=== PATIENT | male | born 1930 | race Caucasian/White ===

== ENCOUNTER 2016-11-09 16:20 | Emergency (ER) | payer MEDICARE, BC ==
[~2016-11-09] VITALS: Ht 175.3 cm; Wt 77.1 kg
[~2016-11-09 16:20] MED LIST: ACET-2151 PO; AML5T; AMLO10TA82 PO; ASP325T PO; ATOR40TA PO; CEFU500T5 PO; CHOL2000 PO; CLPD75T PO; DNPZ10T PO; FAMO20TA13 PO; METO50TA7; MTP100TCR PO; MULT1CAP27 PO; NTR.4SL PO; OMG1KC PO; PROP1TAB77; VITA1CAP59 PO; [UNRECOGNIZED DRUG - CODE] PO
--- OUTSIDE RECORDS SUMMARY | 2016-11-09 16:26 | XMS REPORT | Continuity of Care Document ---
Author Author [facility] Organization [facility] Address Unknown Phone Unavailable Care Team Providers Care Heat Treat Inspector Name Role Phone Bhardwaj, Lalita PCP [phone] Source Comments Some departments are not documenting in the electronic medical record. If you do not see the information that you expected, contact Release of Information in the Health Information Management department at [phone] for further assistance in locating additional records.[facility] Active Allergies and Adverse Reactions Allergen Noted Date Severity Reactions Comments Tetracycline 08/22/2011 HIVES Current Medications Prescription Sig. Disp. Refills Start End Date Status Date clopidogrel (PLAVIX) 75 Take 75 mg by mouth Active mg daily. aspirin 325 mg tablet Take 325 mg by mouth Active daily. ATORVASTATIN CALCIUM Take 40 mg by mouth Active (LIPITOR PO) daily. donepezil (ARICEPT) 5 mg Take 10 mg by mouth at Active tablet bedtime daily. vitamins, B complex Tab Take 1 Tab by mouth Active daily. DOCOSAHEXANOIC ACID/EPA Take 1,000 mg by mouth Active (FISH OIL PO) twice daily. metoprolol XL (TOPROL XL) Take 100 mg by mouth Active 100 mg tablet daily. famotidine (PEPCID) 20 mg Take 20 mg by mouth Active tablet daily. vitamins, multiple Cap Take 1 Cap by mouth Active daily. Cholecalciferol (Vitamin Take 2,000 Units by mouth Active D3) 2,000 unit Cap daily. acetaminophen 650 mg Tab Take 1 Tab by mouth every 30 Tab 08/30/20 Active 6 hours as needed for 11 Pain. hydrocodone-acetaminophen Take 1 Tab by mouth every 15 Tab 0 08/30/20 Active (NORCO) 5-325 mg per 12 hours. 11 tablet amLODIPine (NORVASC) 5 mg Take 1 Tab by mouth 90 Tab 1 08/30/20 Active tablet daily. 11 nitroglycerin (NITROSTAT) Place 1 Tab under tongue 30 Tab 0 08/30/20 Active 0.3 mg tablet every 5 minutes as 11 needed. 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 Bradycardia 09/01/2000 Overview: Had PPM placed in 2000. Social History Tobacco Use Types Packs/Day Years Used Date Never Assessed Last Filed Vital Signs Vital Sign Reading Time Taken Blood Pressure 136/80 08/30/2011 11:47 AM ACCESS CONTROL OFFICER Pulse 60 08/30/2011 11:47 AM ACCESS CONTROL OFFICER Temperature 37.1 C (98.8 F) 08/30/2011 11:47 AM ACCESS CONTROL OFFICER Respiratory Rate - - Height 1.753 m (5' 9") 08/22/2011 5:13 PM ACCESS CONTROL OFFICER Weight 75.3 kg (166 lb 0.1 oz) 08/30/2011 4:00 AM ACCESS CONTROL OFFICER Body Mass Index 24.5 08/30/2011 4:00 AM ACCESS CONTROL OFFICER Oxygen Saturation 94% 08/30/2011 11:47 AM ACCESS CONTROL OFFICER Plan of Care Health Maintenance Due Date Last Done Comments Physical (Comprehensive) 1937 Exam Pertussis Vaccine 1942 Tetanus Vaccine 1948 Shingles Vaccine 1991 Prevnar/Pneumovax (#1) 1996 Influenza Vaccine 05/02/2015 Results from Last 3 Months Not on file
--- NOTE | 2016-11-09 17:28 | ED Lower Extremity ---
General Stated Complaint: R THIGH SWELLING/POSS BLOOD CLOT Source: patient, family Exam Limitations: no limitations History of Present Illness Time seen by provider: 17:04 Initial Comments Here with report of right thigh swelling and bruising. Onset evening. He and his were moving some 2 x 4 wood on that day and they noticed the bruising and pain that night. He is on Plavix and aspirin. Has not missed any doses. Doesn't remember any specific injury although he does have mild to moderate dementia. His is very caring and manages his medicines. She does not remember any specific injury with him either. No reported or noted falls. He is able to walk but does have some pain in the right upper thigh along the hamstring. There is bruising checked and her thigh to the area behind the knee and outer aspect of the thigh to a lesser extent as well. Onset: other (2-3 days) Severity: mild, moderate Pain/Injury Location: right thigh Method of Injury: unknown Modifying Factors: Worse With Movement, Improves With Rest Allergies and Home Medications Allergies Coded Allergies: IV Dye, Iodine Containing (Unverified Allergy, Unknown, 02/16/07) Tetracycline (Unverified Allergy, Unknown, 02/16/07) Home Medications Amlodipine Besylate 10 Mg Tablet 5 MG PO DAILY (Reported) Aspirin 325 Mg Tablet 325 MG PO DAILY (Reported) Atorvastatin Calcium 40 Mg Tablet 40 MG PO DAILY (Reported) Cholecalciferol 2,000 Unit Capsule 2,000 UNIT PO DAILY (Reported) Clopidogrel 75 Mg Tablet 75 MG PO DAILY (Reported) Donepezil Hcl 10 Mg Tablet 10 MG PO DAILY (Reported) Famotidine 20 Mg Tablet 20 MG PO DAILY PRN PRN (Reported) Metoprolol Succinate 100 Mg Tab.sr.24h 100 MG PO DAILY (Reported) Multivitamins 1 Each Capsule 1 EACH PO DAILY (Reported) Nitroglycerin 0.4 Mg Tab 0.4 MG PO PRN (Reported) [place] 3 Polyunsat Fatty Acids 1,000 Mg Cap 1,000 MG PO BID (Reported) Vitamin B Complex 1 Cap Capsule 1 CAP PO DAILY (Reported) Constitutional: see HPINo chills, No fever Respiratory: no symptoms reported Cardiovascular: no symptoms reported Gastrointestinal: no symptoms reported Musculoskeletal: see HPI muscle pain muscle stiffness Skin: see HPI change in colorNo lesions Past Fsjdqbz-Zyhyhg-Ofklur Hx Patient Social History Alcohol Use: Denies Use Recreational Drug Use: No Smoking Status: Unknown if Ever Smoked Recent Foreign Travel: No Contact w/Someone Who Travel: No Surgeries HX Surgeries: Yes (194 APPY) Respiratory Hx Respiratory Disorders: No Cardiovascular Hx Cardiac Disorders: Yes Neurological Hx Neurological Disorders: No Reproductive System Hx Reproductive Disorders: Yes Genitourinary Hx 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) Gastrointestinal Hx Gastrointestinal Disorders: Yes Musculoskeletal Hx Musculoskeletal Disorders: Yes Endocrine Hx Endocrine Disorders: No HEENT HX ENT Disorders: No Psychosocial Hx Psychiatric Problems: No Blood Transfusions Hx Blood Disorders: Yes Reviewed Nursing Assessment Reviewed/Agree w Nursing PMH: Yes Family Medical History Significant Family History: No Pertinent Family Hx Physical Exam Vital Signs Vital Sign - Last 12Hours 11/09/16 17:22 Temp 97.2 Pulse 59 Resp 16 B/P 156/85 Pulse Ox 97 O2 Delivery Room Air Capillary Refill : General Appearance: WD/WN no apparent distress HEENT: PERRL/EOMI pharynx normal Neck: full range of motion supple Cardiovascular: regular rate, rhythm no murmur Respiratory: lungs clear normal breath sounds Gastrointestinal: non tender soft Back: normal inspection no CVA tenderness no vertebral tenderness Hips: bilateral hip non-tender, bilateral hip normal inspection, bilateral hip normal range of motion Legs: right leg soft tissue tenderness (medial thigh and to a lesser extent area behind the right knee.), right leg swelling (mild swelling of the thigh) Knees: left knee non-tender, right knee soft tissue tenderness (posterior knee) Ankles: bilateral ankle non-tender, bilateral ankle normal inspection Feet: right foot non-tender, right foot normal inspection Neurologic/Psychiatric: alert oriented x 3 Skin: warm/dry ecchymosis (right medial thigh upper portion and posterior distal thigh. Small amount on lateral aspect of the thigh on right as well.) Progress/Results/Core Measures Results/Orders Lab Results Laboratory Tests Test 11/09/16 17:25 Range/Units Activated Partial Thromboplast Time 29 24-35 SEC Alanine Aminotransferase (ALT/SGPT) 22 0-55 U/L Albumin 4.2 3.2-4.5 G/DL Alkaline Phosphatase 72 40-136 U/L Anion Gap 14 5-14 MMOL/L Aspartate Amino Transf (AST/SGOT) 40 H 5-34 U/L BUN/Creatinine Ratio 16 Basophils # (Auto) 0.0 0.0-0.1 10^3/uL Basophils (%) (Auto) 0 0-10 % Blood Urea Nitrogen 24 H 7-18 MG/DL Calcium Level 9.7 8.5-10.1 MG/DL Carbon Dioxide Level 21 21-32 MMOL/L Chloride Level 105 98-107 MMOL/L Creatinine 1.52 H 0.60-1.30 MG/DL Eosinophils # (Auto) 0.1 0.0-0.3 10^3/uL Eosinophils (%) (Auto) 1 0-10 % Estimat Glomerular Filtration Rate 44 Glucose Level 131 H 70-105 MG/DL Hematocrit 40 40-54 % Hemoglobin 13.6 13.3-17.7 G/DL INR Comment 1.0 0.8-1.4 Lymphocytes # (Auto) 2.1 1.0-4.0 X 10^3 Lymphocytes (%) (Auto) 20 12-44 % Mean Corpuscular Hemoglobin 32 25-34 PG Mean Corpuscular Hemoglobin Concent 34 32-36 G/DL Mean Corpuscular Volume 93 80-99 FL Mean Platelet Volume 10.9 H 7.4-10.4 FL Monocytes # (Auto) 1.2 H 0.0-1.0 X 10^3 Monocytes (%) (Auto) 11 0-12 % Neutrophils # (Auto) 7.4 1.8-7.8 X 10^3 Neutrophils (%) (Auto) 69 42-75 % Platelet Count 166 130-400 10^3/uL Potassium Level 4.4 3.6-5.0 MMOL/L Prothrombin Time 12.8 12.2-14.7 SEC Red Blood Count 4.30 L 4.35-5.85 10^6/uL Red Cell Distribution Width 13.1 10.0-14.5 % Sodium Level 140 135-145 MMOL/L Total Bilirubin 1.0 0.1-1.0 MG/DL Total Protein 7.5 6.4-8.2 G/DL White Blood Count 10.7 4.3-11.0 10^3/uL My Orders Orders-VALENTIN BRASWELL MD Cbc With Automated Diff (11/09/16 17:19) Comprehensive Metabolic Panel (11/09/16 17:19) Protime With Inr (11/09/16 17:19) Partial Thromboplastin Time (11/09/16 17:19) Us Venous Lower Ext Rt (11/09/16 17:19) Vital Signs/I&O Vital Sign - Last 12Hours 11/09/16 11/09/16 17:22 18:53 Temp 97.2 Pulse 59 71 Resp 16 18 B/P 156/85 Pulse Ox 97 96 O2 Delivery Room Air Progress Note : Progress Note Seen and evaluated. Labs ordered. Ultrasound right leg. Monitor patient. 1840: Ultrasound negative. Discharged home with return precautions. Patient and family verbalize understanding instructions and agreement with plan. Diagnostic Imaging Diagonstic Imaging: Ultrasound Plain Films/CT/US/NM/MRI: leg Comments VIA [facility]. [place], [place] NAME: GREG SESAY [facility] REC#: [id number] PT STATUS: REG ER : 1930 PHYSICIAN: VALENTIN BRASWELL MD ADMIT DATE: 11/09/16/ER Draft Date of Exam:11/09/16 US VENOUS LOWER EXT RT PROCEDURE: US right lower extremity venous. TECHNIQUE: Multiple real-time grayscale images were obtained over the right lower extremity in various projections. Additional duplex Doppler and color Doppler images were also obtained. Indication: Right thigh pain and swelling. Comparison: None. Technique: The right lower extremity deep venous system was interrogated from the common femoral vein through the popliteal vein. These images were assessed for grayscale appearance, color and spectral Doppler blood flow, compression, and augmentation. Findings: There is no evidence of intraluminal filling defect. Normal compression and augmentation is noted throughout. Soft tissues are unremarkable. Impression: 1. No sonographic evidence of deep venous thrombosis in the right lower extremity. Dictated on workstation # [id number] Dict: 11/09/161818 Trans: 11/09/16 1823 [facility] [id number] Interpreted by: EMILI HASSAN MD Electronically signed by: Departure Impression Impression: Primary Impression: Right hamstring muscle strain Qualified Code: S76.311A - Strain of muscle, fascia and tendon of the posterior muscle group at thigh level, right thigh, initial encounter Additional Impression: Hematoma of right thigh Qualified Code: S70.11XA - Contusion of right thigh, initial encounter Disposition: 01 HOME, SELF-CARE Condition: Improved Departure-Patient Inst. Decision time for Depature: 18:40 Referrals: HOWIE MOORE MD (PCP/Family) Primary Care Physician Patient Instructions: Contusion (DC), Lower Extremity Muscle Strain Add. Discharge Instructions: You may use ice packs to the affected area as needed. Follow-up with your DrMendoza in a few days for recheck. Continue home medications as directed. Return for worse pain, swelling, weakness, fever, breathing problems or other concerns as needed. VALENTIN BRASWELL MD Nov 09, 2016 17:28 VALENTIN BRASWELL MD Nov 09, 2016 17:28
[2016-11-09 17:39] LABS: BASOPHILS % (AUTO) 0 % (0-10); EOSINOPHILS # (AUTO) 0.1 10^3/uL (0.0-0.3); EOSINOPHILS % (AUTO) 1 % (0-10); LYMPHOCYTES # (AUTO) 2.1 X 10^3 (1.0-4.0); LYMPHOCYTES % (AUTO) 20 % (12-44); MEAN CORPUSCULAR HEMOGLOBIN 32 PG (25-34); MEAN CORPUSCULAR HGB CONC 34 G/DL (32-36); MEAN CORPUSCULAR VOLUME 93 FL (80-99); MEAN PLATELET VOLUME 10.9 FL (7.4-10.4); MONOCYTES # (AUTO) 1.2 X 10^3 (0.0-1.0); MONOCYTES % (AUTO) 11 % (0-12); NEUTROPHILS # (AUTO) 7.4 X 10^3 (1.8-7.8); NEUTROPHILS % (AUTO) 69 % (42-75); PLATELET COUNT 166 10^3/uL (130-400); RED CELL DISTRIBUTION WIDTH 13.1 % (10.0-14.5); WHITE BLOOD COUNT 10.7 10^3/uL (4.3-11.0)
[2016-11-09 17:53] LABS: PROTHROMBIN TIME PATIENT 12.8 SEC (12.2-14.7)
[2016-11-09 18:02] LABS: ALBUMIN 4.2 G/DL (3.2-4.5); CALCIUM 9.7 MG/DL (8.5-10.1); CREATININE SERUM 1.52 MG/DL (0.60-1.30); POTASSIUM 4.4 MMOL/L (3.6-5.0); TOTAL PROTEIN 7.5 G/DL (6.4-8.2)
--- NOTE | 2016-11-09 18:23 | Diagnostic Imaging Report ---
PROCEDURE: US right lower extremity venous. TECHNIQUE: Multiple real-time grayscale images were obtained over the right lower extremity in various projections. Additional duplex Doppler and color Doppler images were also obtained. Indication: Right thigh pain and swelling. Comparison: None. Technique: The right lower extremity deep venous system was interrogated from the common femoral vein through the popliteal vein. These images were assessed for grayscale appearance, color and spectral Doppler blood flow, compression, and augmentation. Findings: There is no evidence of intraluminal filling defect. Normal compression and augmentation is noted throughout. Soft tissues are unremarkable. Impression: 1. No sonographic evidence of deep venous thrombosis in the right lower extremity. Dictated by: Dictated on workstation # [id number]
[2016-11-09 18:53] VITALS: BP 158/81
== END 2016-11-09 18:54 | disposition home or self-care (01) ==
LOC: EDUNIT# 16:20 → ER 16:22
DX: S76.311A Strain of muscle, fascia and tendon of the posterior muscle group at thigh level, right thigh, initial encounter (principal); S70.11XA Contusion of right thigh, initial encounter; X58.XXXA Exposure to other specified factors, initial encounter; Y92.017 Garden or yard in single-family (private) house as the place of occurrence of the external cause; Y93.H9 Activity, other involving exterior property and land maintenance, building and construction; Y99.8 Other external cause status
CPT/HCPCS: 36415; 80053; 85025; 85610; 85730; 99283

== ENCOUNTER → 2016-11-22 | Outpatient (CLI) | payer MEDICARE, BC ==
[2016-11-22 12:29] LABS: BASOPHILS % (AUTO) 0 % (0-10); EOSINOPHILS # (AUTO) 0.2 10^3/uL (0.0-0.3); EOSINOPHILS % (AUTO) 2 % (0-10); LYMPHOCYTES % (AUTO) 21 % (12-44); MEAN CORPUSCULAR HEMOGLOBIN 31 PG (25-34); MEAN CORPUSCULAR HGB CONC 34 G/DL (32-36); MEAN CORPUSCULAR VOLUME 94 FL (80-99); MEAN PLATELET VOLUME 10.1 FL (7.4-10.4); MONOCYTES # (AUTO) 0.9 X 10^3 (0.0-1.0); MONOCYTES % (AUTO) 9 % (0-12); NEUTROPHILS # (AUTO) 6.3 X 10^3 (1.8-7.8); NEUTROPHILS % (AUTO) 67 % (42-75); PLATELET COUNT 253 10^3/uL (130-400); RED BLOOD COUNT 4.34 10^6/uL (4.35-5.85); RED CELL DISTRIBUTION WIDTH 13.6 % (10.0-14.5); WHITE BLOOD COUNT 9.4 10^3/uL (4.3-11.0)
[2016-11-22 12:49] LABS: ALBUMIN 4.1 G/DL (3.2-4.5); BILIRUBIN,TOTAL 0.9 MG/DL (0.1-1.0); CALCIUM 9.5 MG/DL (8.5-10.1); CREATININE SERUM 1.45 MG/DL (0.60-1.30); POTASSIUM 4.9 MMOL/L (3.6-5.0); TOTAL PROTEIN 7.5 G/DL (6.4-8.2); hs C REACTIVE PROTEIN 0.78 MG/DL (0.00-0.50)
--- NOTE | 2016-11-22 13:24 | Diagnostic Imaging Report ---
CLINICAL INDICATION: Patient with right lower extremity edema, erythema, and pain. COMPARISON: Ultrasound venous Doppler of the right lower extremity dated 11/09/2016. PROCEDURE: Real-time right lower extremity venous Doppler duplex evaluation is performed from the inguinal region through the popliteal fossa. The calf venous structures are also evaluated. FINDINGS: The deep venous system is well visualized and is easily compressible. There is no evidence of deep venous thrombosis, valvular incompetence, or significant collateral circulation. IMPRESSION: 1: There is no ultrasound Doppler evidence of deep venous thrombosis in the right lower extremity. Dictated by: Dictated on workstation # [id number]
== END ==
LOC: LAB 11:58
DX: R60.0 Localized edema (principal); M79.661 Pain in right lower leg
CPT/HCPCS: 36415; 80053; 85025; 85379; 86141

== ENCOUNTER 2017-03-29 17:59 | Emergency (ER) | payer MEDICARE, BC ==
[~2017-03-29] VITALS: Ht 175.3 cm; Wt 77.1 kg
[2017-03-29] MEDS ORDERED: LORA0.5T (18:54)
[2017-03-29] MEDS ORDERED: CEPH500C (18:54)
--- NOTE | 2017-03-29 20:01 | ED Psychosocial ---
General Chief Complaint: Altered Mental Status Stated Complaint: NOT FEELING WELL Nursing Triage Note: ALZH, INCREASED CONFUSION Source: patient Exam Limitations: no limitations History of Present Illness Time seen by provider: 19:40 Allergies and Home Medications Allergies Coded Allergies: IV Dye, Iodine Containing (Unverified Allergy, Unknown, 02/16/07) Tetracycline (Unverified Allergy, Unknown, 02/16/07) Home Medications Amlodipine Besylate 10 Mg Tablet, 5 MG PO DAILY, (Reported) Aspirin 325 Mg Tablet, 325 MG PO DAILY, (Reported) Atorvastatin Calcium 40 Mg Tablet, 40 MG PO DAILY, (Reported) Cephalexin 500 Mg Capsule, #30 (Reported) Cholecalciferol 2,000 Unit Capsule, 2,000 UNIT PO DAILY, (Reported) Clopidogrel 75 Mg Tablet, 75 MG PO DAILY, (Reported) Donepezil Hcl 10 Mg Tablet, 10 MG PO DAILY, (Reported) Famotidine 20 Mg Tablet, 20 MG PO DAILY PRN, (Reported) Lorazepam 0.5 Mg Tablet, #60 (Reported) Metoprolol Succinate 100 Mg Tab.sr.24h, 100 MG PO DAILY, (Reported) Multivitamins 1 Each Capsule, 1 EACH PO DAILY, (Reported) Nitroglycerin 0.4 Mg Tab, 0.4 MG PO PRN, (Reported) [place] 3 Polyunsat Fatty Acids 1,000 Mg Cap, 1,000 MG PO BID, (Reported) Vitamin B Complex 1 Cap Capsule, 1 CAP PO DAILY, (Reported) Past Bsaocow-Cwmljk-Adhcyt Hx Patient Social History Alcohol Use: Denies Use Recreational Drug Use: No Smoking Status: Never a Smoker 2nd Hand Smoke Exposure: No Recent Foreign Travel: No Contact w/Someone Who Travel: No Recent Infectious Disease Expo: No Recent Hopitalizations: No Immunizations Up To Date Tetanus Booster (TDap): Unknown Seasonal Allergies Seasonal Allergies: No Surgeries HX Surgeries: Yes (CARDIAC STENT) Surgeries: Appendectomy, CABG, Orthopedic, Pacemaker Respiratory Hx Respiratory Disorders: No Cardiovascular Hx Cardiac Disorders: Yes (SSS) Cardiac Disorders: Cardiomyopathy, Coronary Artery Disease, Hypertension, Peripheral Vascular Neurological Hx Neurological Disorders: Yes Neurological Disorders: Dementia Reproductive System Hx Reproductive Disorders: No Genitourinary Hx Genitourinary Disorders: Yes (RENAL INSUFFICIENCY) Gastrointestinal Hx Gastrointestinal Disorders: Yes Gastrointestinal Disorders: Gastroesophageal Reflux Musculoskeletal Hx Musculoskeletal Disorders: Yes Musculoskeletal Disorders: Degenerate Disk Disease Endocrine Hx Endocrine Disorders: No HEENT HX ENT Disorders: No Cancer Hx Cancer: No Psychosocial Hx Psychiatric Problems: No Blood Transfusions Hx Blood Disorders: No Family Medical History Significant Family History: No Pertinent Family Hx Physical Exam Vital Signs Vital Sign - Last 12Hours 03/29/17 18:54 Temp 97.2 Pulse 73 Resp 16 B/P (MAP) 146/75 Pulse Ox 95 O2 Delivery Room Air Capillary Refill : Less Than 3 Seconds Progress/Results/Core Measures Results/Orders My Orders Orders - JOHN ARAUJO Ua Culture If Indicated (03/29/17 19:52) Risperidone Tablet (Risperdal Tablet) (03/29/17 20:15) Medications Given in ED Current Medications Medications Dose Ordered Sig/Radha Route Start Time Stop Time Status Last Admin Dose Admin Risperidone 0.25 mg ONCE ONCE PO 03/29/17 20:15 03/29/17 20:16 DC 03/29/17 20:23 0.25 MG Vital Signs/I&O Vital Sign - Last 12Hours 03/29/17 18:54 Temp 97.2 Pulse 73 Resp 16 B/P (MAP) 146/75 Pulse Ox 95 O2 Delivery Room Air Blood Pressure Mean: 98 Departure Impression Impression: Primary Impression: Alzheimer's dementia Disposition: HOME, SELF-CARE Condition: Improved Departure-Patient Inst. Decision time for Depature: 20:28 Referrals: ANGIE YOUSSEF DO (PCP/Family) Primary Care Physician Patient Instructions: Dementia (DC) Add. Discharge Instructions: All discharge instructions reviewed with patient and/or family. Voiced understanding. Medications as directed. Continue usual medications. Follow- up with Dr. loco on Friday for recheck. Return to the emergency department for worsened symptoms or any other concerns. Scripts Risperidone (Risperidone Odt) 0.25 Mg Tab.rapdis 0.25 MG PO HS, #10 TAB 0 Refills Prov: JOHN ARAUJO 03/29/17 JOHN ARAUJO Mar 29, 2017 20:01
[2017-03-29] MEDS ORDERED: risperiDONE 0.25 MG (RisperDAL) TAB PO ONE (20:15)
[2017-03-29] MEDS ORDERED: RISP0.2552 PO (20:29)
[2017-03-29 20:58] LABS: BILIRUBIN,URINE NEGATIVE (NEGATIVE); KETONES,URINE NEGATIVE (NEGATIVE); LEUKOCYTE ESTERASE ,URINE 1+ (NEGATIVE); NITRITE,URINE NEGATIVE (NEGATIVE); PH,URINE 5 (5-9); PROTEIN,URINE NEGATIVE (NEGATIVE); UROBILINOGEN,URINE NORMAL (NORMAL)
[2017-03-29 21:24] VITALS: BP 135/70
== END 2017-03-29 21:23 | disposition home or self-care (01) ==
LOC: EDUNIT# 17:59 → ER 18:00
DX: G30.9 Alzheimer's disease, unspecified (principal); F02.80 Dementia in other diseases classified elsewhere, unspecified severity, without behavioral disturbance, psychotic disturbance, mood disturbance, and anxiety; I73.9 Peripheral vascular disease, unspecified; I10 Essential (primary) hypertension; I25.10 Atherosclerotic heart disease of native coronary artery without angina pectoris; I42.9 Cardiomyopathy, unspecified; K21.9 Gastro-esophageal reflux disease without esophagitis; Z79.82 Long term (current) use of aspirin; Z79.02 Long term (current) use of antithrombotics/antiplatelets; Z95.1 Presence of aortocoronary bypass graft; Z95.5 Presence of coronary angioplasty implant and graft; Z95.0 Presence of cardiac pacemaker; Z90.49 Acquired absence of other specified parts of digestive tract
CPT/HCPCS: 81000; 99283

== ENCOUNTER 2017-03-31 20:46 | Emergency (ER) | payer MEDICARE, BC ==
[~2017-03-31] VITALS: Ht 175.3 cm; Wt 77.1 kg
[~2017-03-31 20:46] MED LIST changes: +CEPH500C; +LORA0.5T; +RISP0.2552 PO
[2017-03-31 22:24] LABS: BASOPHILS % (AUTO) 0 % (0-10); EOSINOPHILS # (AUTO) 0.2 10^3/uL (0.0-0.3); EOSINOPHILS % (AUTO) 2 % (0-10); LYMPHOCYTES # (AUTO) 2.3 X 10^3 (1.0-4.0); LYMPHOCYTES % (AUTO) 28 % (12-44); MEAN CORPUSCULAR HEMOGLOBIN 31 PG (25-34); MEAN CORPUSCULAR HGB CONC 34 G/DL (32-36); MEAN CORPUSCULAR VOLUME 91 FL (80-99); MEAN PLATELET VOLUME 10.9 FL (7.4-10.4); MONOCYTES # (AUTO) 0.9 X 10^3 (0.0-1.0); MONOCYTES % (AUTO) 11 % (0-12); NEUTROPHILS # (AUTO) 4.7 X 10^3 (1.8-7.8); NEUTROPHILS % (AUTO) 58 % (42-75); PLATELET COUNT 151 10^3/uL (130-400); RED BLOOD COUNT 4.57 10^6/uL (4.35-5.85); RED CELL DISTRIBUTION WIDTH 13.3 % (10.0-14.5)
[2017-03-31 22:42] LABS: ALBUMIN 3.8 GM/DL (3.2-4.5); BILIRUBIN,TOTAL 0.6 MG/DL (0.1-1.0); CREATININE SERUM 1.24 MG/DL (0.60-1.30); POTASSIUM 4.2 MMOL/L (3.6-5.0); TOTAL PROTEIN 6.8 GM/DL (6.4-8.2)
--- NOTE | 2017-03-31 23:19 | ED Psychosocial ---
General Chief Complaint: Altered Mental Status Stated Complaint: ALZHEIMERS/AGITATED/AMS Nursing Triage Note: PT FAMILY REPORTS INCREASED AGITATION AND CONFUSION THIS EVENING. PT FAMILY REPORTS PT ALMOST GOT OUT OF THE HOUSE LOOKINGFOR HIS PARENTS. PT FAMILY REPORTS HE HAS A APPOINTMENT WITH DR MARTELL TOMORROW. Source: patient, family, old records Exam Limitations: clinical condition History of Present Illness Time seen by provider: 21:05 Initial Comments This 87-year-old gentleman presents to the emergency room accompanied by his family with concerns about agitation that seems to be related to worsening dementia. He was seen in this ER for the same symptoms on March 29. A urinalysis at that time was unremarkable. Patient has been prescribed Ativan up to 1 mg twice a day by urgent care. On the he was prescribed low-dose Risperdal. This evening while getting ready for bed patient became rather agitated and started pushing his around. He was wanting to leave the house and she was having difficulty talking him down. Patient's son was eventually able to calm the patient down. Patient did have a dose of Ativan and Risperdal just prior to the episode. These medications may have contributed to his calming. Patient is now calm and resting comfortably in bed. He states no complaints. He has disorientation consistent with his dementia. Allergies and Home Medications Allergies Coded Allergies: IV Dye, Iodine Containing (Unverified Allergy, Unknown, 02/16/07) Tetracycline (Unverified Allergy, Unknown, 02/16/07) Home Medications Amlodipine Besylate 10 Mg Tablet, 5 MG PO DAILY, (Reported) Aspirin 325 Mg Tablet, 325 MG PO DAILY, (Reported) Atorvastatin Calcium 40 Mg Tablet, 40 MG PO DAILY, (Reported) Cephalexin 500 Mg Capsule, #30 (Reported) Cholecalciferol 2,000 Unit Capsule, 2,000 UNIT PO DAILY, (Reported) Clopidogrel 75 Mg Tablet, 75 MG PO DAILY, (Reported) Donepezil Hcl 10 Mg Tablet, 10 MG PO DAILY, (Reported) Famotidine 20 Mg Tablet, 20 MG PO DAILY PRN, (Reported) Lorazepam 0.5 Mg Tablet, #60 (Reported) Metoprolol Succinate 100 Mg Tab.sr.24h, 100 MG PO DAILY, (Reported) Multivitamins 1 Each Capsule, 1 EACH PO DAILY, (Reported) Nitroglycerin 0.4 Mg Tab, 0.4 MG PO PRN, (Reported) [place] 3 Polyunsat Fatty Acids 1,000 Mg Cap, 1,000 MG PO BID, (Reported) Risperidone 0.25 Mg Tab.rapdis, 0.25 MG PO HS, #10 Ref 0 Prescribed by: JOHN ARAUJO on 03/29/172028 Vitamin B Complex 1 Cap Capsule, 1 CAP PO DAILY, (Reported) Constitutional: no symptoms reported EENTM: no symptoms reported Respiratory: no symptoms reported Cardiovascular: no symptoms reported Gastrointestinal: no symptoms reported Genitourinary: no symptoms reported Musculoskeletal: no symptoms reported Skin: no symptoms reported Psychiatric/Neurological: See HPI Past Vwisxbq-Vkyoyw-Qnkuds Hx Patient Social History Alcohol Use: Denies Use Recreational Drug Use: No Smoking Status: Never a Smoker 2nd Hand Smoke Exposure: No Recent Foreign Travel: No Contact w/Someone Who Travel: No Recent Infectious Disease Expo: No Recent Hopitalizations: No Immunizations Up To Date Tetanus Booster (TDap): Unknown Seasonal Allergies Seasonal Allergies: No Surgeries HX Surgeries: Yes (CARDIAC STENT) Surgeries: Appendectomy, CABG, Orthopedic, Pacemaker Respiratory Hx Respiratory Disorders: No Cardiovascular Hx Cardiac Disorders: Yes (SSS) Cardiac Disorders: Cardiomyopathy, Coronary Artery Disease, Hypertension, Peripheral Vascular Neurological Hx Neurological Disorders: Yes Neurological Disorders: Dementia Reproductive System Hx Reproductive Disorders: No Genitourinary Hx Genitourinary Disorders: Yes (RENAL INSUFFICIENCY) Gastrointestinal Hx Gastrointestinal Disorders: Yes Gastrointestinal Disorders: Gastroesophageal Reflux Musculoskeletal Hx Musculoskeletal Disorders: Yes Musculoskeletal Disorders: Degenerate Disk Disease Endocrine Hx Endocrine Disorders: No HEENT HX ENT Disorders: No Cancer Hx Cancer: No Psychosocial Hx Psychiatric Problems: No Blood Transfusions Hx Blood Disorders: No Family Medical History Significant Family History: No Pertinent Family Hx Physical Exam Vital Signs Vital Sign - Last 12Hours 03/31/17 03/31/17 21:32 23:37 Temp 97.3 Pulse 60 Resp 18 B/P (MAP) 147/76 Pulse Ox 97 O2 Delivery Room Air Capillary Refill : Less Than 3 Seconds General Appearance: WD/WN, no apparent distress HEENT: PERRL/EOMI, normal ENT inspection, pharynx normal Respiratory: lungs clear, normal breath sounds, no respiratory distress, no accessory muscle use Cardiovascular: regular rate, rhythm, no edema, no murmur Gastrointestinal: normal bowel sounds, non tender, soft Extremities: normal inspection, no pedal edema Neurologic/Psychiatric: social sciences professor II-XII nml as tested, no motor/sensory deficits, alert, normal mood/affect, other (disorientation consistent with dementia) Appearance/Memory: appropriate appearance, neat Behavior/Eye Contact: cooperative, good eye contact, normal speech Skin: normal color, warm/dry Progress/Results/Core Measures Results/Orders Lab Results Laboratory Tests Test 03/31/17 22:16 Range/Units White Blood Count 8.0 4.3-11.0 10^3/uL Red Blood Count 4.57 4.35-5.85 10^6/uL Hemoglobin 14.0 13.3-17.7 G/DL Hematocrit 42 40-54 % Mean Corpuscular Volume 91 80-99 FL Mean Corpuscular Hemoglobin 31 25-34 PG Mean Corpuscular Hemoglobin Concent 34 32-36 G/DL Red Cell Distribution Width 13.3 10.0-14.5 % Platelet Count 151 130-400 10^3/uL Mean Platelet Volume 10.9 H 7.4-10.4 FL Neutrophils (%) (Auto) 58 42-75 % Lymphocytes (%) (Auto) 28 12-44 % Monocytes (%) (Auto) 11 0-12 % Eosinophils (%) (Auto) 2 0-10 % Basophils (%) (Auto) 0 0-10 % Neutrophils # (Auto) 4.7 1.8-7.8 X 10^3 Lymphocytes # (Auto) 2.3 1.0-4.0 X 10^3 Monocytes # (Auto) 0.9 0.0-1.0 X 10^3 Eosinophils # (Auto) 0.2 0.0-0.3 10^3/uL Basophils # (Auto) 0.0 0.0-0.1 10^3/uL Sodium Level 139 135-145 MMOL/L Potassium Level 4.2 3.6-5.0 MMOL/L Chloride Level 105 98-107 MMOL/L Carbon Dioxide Level 25 21-32 MMOL/L Anion Gap 9 5-14 MMOL/L Blood Urea Nitrogen 23 H 7-18 MG/DL Creatinine 1.24 0.60-1.30 MG/DL Estimat Glomerular Filtration Rate 55 BUN/Creatinine Ratio 19 Glucose Level 103 70-105 MG/DL Calcium Level 9.0 8.5-10.1 MG/DL Total Bilirubin 0.6 0.1-1.0 MG/DL Aspartate Amino Transf (AST/SGOT) 24 5-34 U/L Alanine Aminotransferase (ALT/SGPT) 19 0-55 U/L Alkaline Phosphatase 69 40-136 U/L Total Protein 6.8 6.4-8.2 GM/DL Albumin 3.8 3.2-4.5 GM/DL TSH [place] Testing 2.25 0.35-4.94 UIU/ML My Orders Orders - REFUGIO JAIMES MD Saline Lock/Iv-Start (03/31/17 21:05) Cbc With Automated Diff (03/31/17 21:05) Comprehensive Metabolic Panel (03/31/17 21:05) Thyroid Analyzer (03/31/17 21:08) Vital Signs/I&O Blood Pressure Mean: 99 Progress Note : Progress Note Urinalysis was normal on the . Blood work tonight was unremarkable. Patient has an appointment with Dr. Martell's clinic tomorrow. Family was advised to add an additional dose of Risperdal when he returns home. If he is not sedated, they can give him another Risperdal dose in the morning. They were advised up to 3 doses of Ativan per day are acceptable. The remainder of his management should be addressed by the primary care team. He remained calm throughout his ER visit. Departure Impression Impression: Primary Impression: Agitation Additional Impression: Alzheimer's dementia Qualified Codes: G30.8 - Other Alzheimer's disease; F02.81 - Dementia in other diseases classified elsewhere with behavioral disturbance Disposition: 01 HOME, SELF-CARE Condition: Improved Departure-Patient Inst. Decision time for Depature: 23:17 Referrals: ANGIE YOUSSEF DO (PCP/Family) Primary Care Physician Patient Instructions: Dementia (DC) Add. Discharge Instructions: Your lab work tonight was unremarkable. Give an additional dose of Risperdal 0.25 mg tonight when you get home. If he is not sedated in the morning, give an additional dose. If he becomes agitated in the night, you may repeat Ativan 1 mg. You may give up to 3 doses of Ativan in one day. Separate each dose by at least 6 hours. Follow-up with Dr. Martell tomorrow as scheduled. Follow her staff's instructions for further dosing of his medications. Turned to care if symptoms worsen. All discharge instructions reviewed with patient and/or family. Voiced understanding. Copy Copies To 1: NARA MARTELL MD, JOSHUA T MD Mar 31, 2017 23:19
[2017-03-31 23:37] VITALS: BP 145/78
== END 2017-03-31 23:32 | disposition home or self-care (01) ==
LOC: EDUNIT# 20:46 → ER 20:47
DX: G30.8 Other Alzheimer's disease (principal); F02.81 Dementia in other diseases classified elsewhere, unspecified severity, with behavioral disturbance; I42.9 Cardiomyopathy, unspecified; I25.10 Atherosclerotic heart disease of native coronary artery without angina pectoris; I10 Essential (primary) hypertension; I73.9 Peripheral vascular disease, unspecified; K21.9 Gastro-esophageal reflux disease without esophagitis; Z79.82 Long term (current) use of aspirin; Z95.5 Presence of coronary angioplasty implant and graft; Z95.1 Presence of aortocoronary bypass graft; Z90.49 Acquired absence of other specified parts of digestive tract; Z95.0 Presence of cardiac pacemaker
CPT/HCPCS: 36415; 80053; 84443; 85025

== ENCOUNTER 2017-07-18 17:46 | Inpatient (IN) | payer MEDICARE, BC ==
[~2017-07-18] VITALS: Ht 175.3 cm; Wt 66.7 kg
[2017-07-18] VITALS (7 sets, daily range): BP systolic 101–127; BP diastolic 55–69
[~2017-07-18 17:46] MED LIST changes: +RISP0.2549 PO; -RISP0.2552 PO
--- OUTSIDE RECORDS SUMMARY | 2017-07-18 17:51 | XMS REPORT | Clinical Summary ---
Author Author [facility] Organization [facility] Address Unknown Phone Unavailable Care Team Providers Care Special Diet Cook Name Role Phone PCP Unavailable Source Comments Some departments are not documenting in the electronic medical record. If you do not see the information that you expected, contact Release of Information in the Health Information Management department at [phone] for further assistance in locating additional records.[facility] Allergies Active Allergy Reactions Severity Noted Date Comments Tetracycline HIVES 08/22/2011 Current Medications Prescription Sig. Disp. Refills Start [...] Types Packs/Day Years Used Date Never Assessed Sex Assigned at Date Recorded Not on file Last Filed Vital Signs Vital Sign Reading Time Taken Blood Pressure 136/80 08/30/2011 11:47 AM CHIP MIXING MACHINE OPERATOR Pulse 60 08/30/2011 11:47 AM CHIP MIXING MACHINE OPERATOR Temperature 37.1 C (98.8 F) 08/30/2011 11:47 AM CHIP MIXING MACHINE OPERATOR Respiratory Rate - - Oxygen Saturation 94% 08/30/2011 11:47 AM CHIP MIXING MACHINE OPERATOR Inhaled Oxygen - - Concentration Weight 75.3 kg (166 lb 0.1 oz) 08/30/2011 4:00 AM CHIP MIXING MACHINE OPERATOR Height 175.3 cm (5' 9") 08/22/2011 5:13 PM CHIP MIXING MACHINE OPERATOR Body Mass Index 24.51 08/30/2011 4:00 AM CHIP MIXING MACHINE OPERATOR Plan of Treatment Health Maintenance Due Date Last Done Comments PHYSICAL (COMPREHENSIVE) 1938 EXAM PERTUSSIS VACCINE 1942 TETANUS VACCINE 1948 SHINGLES VACCINE 1991 PREVNAR/PNEUMOVAX (#1) 1996 INFLUENZA VACCINE 04/01/2017 Results Not on filefrom Last 3 Months
[2017-07-18] MEDS ORDERED: LACTATED RINGERS 1,000 ML IV ONE (18:01)
[2017-07-18] MEDS ORDERED: RT-ALBUTEROL/IPRATROPIUM 3 ML (DUONEB) VIAL INH ONE (18:15)
[2017-07-18 18:22] LABS: BASOPHILS % (AUTO) 0 % (0-10); EOSINOPHILS # (AUTO) 0.1 10^3/uL (0.0-0.3); EOSINOPHILS % (AUTO) 1 % (0-10); LYMPHOCYTES # (AUTO) 1.2 X 10^3 (1.0-4.0); LYMPHOCYTES % (AUTO) 9 % (12-44); MEAN CORPUSCULAR HEMOGLOBIN 32 PG (25-34); MEAN CORPUSCULAR HGB CONC 34 G/DL (32-36); MEAN CORPUSCULAR VOLUME 94 FL (80-99); MEAN PLATELET VOLUME 11.8 FL (7.4-10.4); MONOCYTES # (AUTO) 1.2 X 10^3 (0.0-1.0); MONOCYTES % (AUTO) 10 % (0-12); NEUTROPHILS # (AUTO) 10.5 X 10^3 (1.8-7.8); NEUTROPHILS % (AUTO) 81 % (42-75); PLATELET COUNT 179 10^3/uL (130-400); RED BLOOD COUNT 4.22 10^6/uL (4.35-5.85); RED CELL DISTRIBUTION WIDTH 13.9 % (10.0-14.5); WHITE BLOOD COUNT 12.9 10^3/uL (4.3-11.0)
--- NOTE | 2017-07-18 18:29 | ED Respiratory ---
General Chief Complaint: Fever-Adult/Adol Stated Complaint: POSS PNEUMONIA Source: family, EMS Exam Limitations: other (PT NOT TALKING AND HAS DEMENTIA) History of Present Illness Time seen by provider: 17:55 Initial Comments PT ARRIVES VIA EMS FROM [facility] PT HAS BEEN MORE WEAK THAN USUAL THE LAST COUPLE OF DAYS JUST PRIOR TO ARRIVAL, STAFF NOTICED PT HAD FEVER OF 101/2, LOW BP--90'S SYSTOLIC HAS HAD A COUGH WELL EMS REPORT THAT BP WAS 89% ON ROOM AIR-UP TO 96% ON 3L/NC EMS REPORT INITIAL BP WAS 84/64 AND UP TO 133/72 WITH MOVING HIM AROUND, ETC. ACCUCHECK 120 BY EMS PT WITH DEMENTIA FAMILY REPORTS THAT HE ASPIRATED A MONTH OR TWO AGO AND SINCE THEN HE HAS BEEN ON A PUREE'D DIET FAMILY REPORTS THAT HE WAS ADMITTED TO [facility] FOR AGGRESSIVENESS AND HAD MEDICATION ADJUSTMENTS, FAMILY REPORT THAT SINCE THAT TIME, PT HAS BEEN MORE WEAK/LETHARGIC, WALKS WITH A SHUFFLE, ETC. PT IS DNR PCP: DR. RAY Allergies and Home Medications Allergies Coded Allergies: IV Dye, Iodine Containing (Unverified Allergy, Unknown, 02/16/07) Tetracycline (Unverified Allergy, Unknown, 02/16/07) Home Medications Amlodipine Besylate 10 Mg Tablet, 5 MG PO DAILY, (Reported) Aspirin 325 Mg Tablet, 325 MG PO DAILY, (Reported) Atorvastatin Calcium 40 Mg Tablet, 40 MG PO DAILY, (Reported) Cephalexin 500 Mg Capsule, #30 (Reported) Cholecalciferol 2,000 Unit Capsule, 2,000 UNIT PO DAILY, (Reported) Clopidogrel 75 Mg Tablet, 75 MG PO DAILY, (Reported) Donepezil Hcl 10 Mg Tablet, 10 MG PO DAILY, (Reported) Famotidine 20 Mg Tablet, 20 MG PO DAILY PRN, (Reported) Lorazepam 0.5 Mg Tablet, #60 (Reported) Metoprolol Succinate 100 Mg Tab.sr.24h, 100 MG PO DAILY, (Reported) Multivitamins 1 Each Capsule, 1 EACH PO DAILY, (Reported) Nitroglycerin 0.4 Mg Tab, 0.4 MG PO PRN, (Reported) [place] 3 Polyunsat Fatty Acids 1,000 Mg Cap, 1,000 MG PO BID, (Reported) Risperidone 0.25 Mg Tab.rapdis, 0.25 MG PO HS, #10 Ref 0 Prescribed by: JOHN ARAUJO on 03/29/172028 Vitamin B Complex 1 Cap Capsule, 1 CAP PO DAILY, (Reported) Constitutional: see HPI, fever, malaise, weakness, other (PT UNABLE TO ANSWER QUESTIONS) Respiratory: see HPI, cough Psychiatric/Neurological: See HPI Past Aswlwsf-Lxsulc-Iwaxub Hx Patient Social History Alcohol Use: Denies Use Recreational Drug Use: No Smoking Status: Never a Smoker 2nd Hand Smoke Exposure: No Recent Foreign Travel: No Contact w/Someone Who Travel: No Recent Hopitalizations: No Physical Abuse: No Sexual Abuse: No Immunizations Up To Date Tetanus Booster (TDap): Unknown Seasonal Allergies Seasonal Allergies: No Surgeries History of Surgeries: Yes (CARDIAC STENT; LEFT HIP REPLACEMENT) Surgeries: Appendectomy, CABG, Coronary Stent, Joint Replacement, Orthopedic, Pacemaker Respiratory History of Respiratory Disorde: Yes (ASPIRATION) Cardiovascular History of Cardiac Disorders: Yes (SSS; RBBB; FIRST DEGREE AV BLOCK) Cardiac Disorders: Cardiomyopathy, Coronary Artery Disease, Hypertension, Peripheral Vascular Neurological History of Neurological Disord: Yes Neurological Disorders: Dementia Reproductive System Hx Reproductive Disorders: No Genitourinary History of Genitourinary Disor: No Gastrointestinal History of Gastrointestinal Di: Yes Gastrointestinal Disorders: Gastroesophageal Reflux Musculoskeletal History of Musculoskeletal Dis: Yes Musculoskeletal Disorders: Degenerate Disk Disease Endocrine History of Endocrine Disorders: No Cancer History of Cancer: No Psychosocial History of Psychiatric Problem: Yes (DEMENTIA WITH BEHAVIOR DISORDER) Suicide Risk Score: 0 Integumentary History of Skin or Integumenta: No Blood Transfusions History of Blood Disorders: No Family Medical History Significant Family History: No Pertinent Family Hx Physical Exam Vital Signs Vital Sign - Last 12Hours Capillary Refill : General Appearance: other (LETHARGIC, NOT TALKING OR FOLLOWING COMMANDS. FREQUENT COUGH WITH AUDIBLE RHONCHI) HEENT: other (ORAL MUCOSA DRY) Respiratory: no respiratory distress, no accessory muscle use, rhonchi Cardiovascular: regular rate, rhythm, no murmur Gastrointestinal: soft Extremities: pedal edema (TRACE BILATERALLY, WEARING LEIGH ANN HOSE. ) Neurologic/Psychiatric: other (DEMENTIA--NOT TALKING OR FOLLOWING COMMANDS, VERY LETHARGIC AT THIS TIME, AND MOSTLY KEEPS EYES CLOSED) Skin: warm/dry (VERY WARM, FACE FLUSHED) Focused Exam Evaluation Lactate Level Laboratory Tests 07/18/17 18:00: Lactic Acid Level 3.46*H Lactic Acid Level Laboratory Tests Test 07/18/17 18:00 Lactic Acid Level 3.46 MMOL/L (0.50-2.00) *H Progress/Results/Core Measures Suspected Sepsis SIRS Temperature: Pulse: Respiratory Rate: Laboratory Tests 07/18/17 18:00: White Blood Count 12.9H Blood Pressure / Mean: Laboratory Tests 07/18/17 18:00: Lactic Acid Level 3.46*H Laboratory Tests 07/18/17 18:00: Creatinine 1.78H, INR Comment 1.0, Platelet Count 179, Total Bilirubin 0.5 Results/Orders Lab Results Laboratory Tests Test 07/18/17 18:00 Range/Units White Blood Count 12.9 H 4.3-11.0 10^3/uL Red Blood Count 4.22 L 4.35-5.85 10^6/uL Hemoglobin 13.4 13.3-17.7 G/DL Hematocrit 40 40-54 % Mean Corpuscular Volume 94 80-99 FL Mean Corpuscular Hemoglobin 32 25-34 PG Mean Corpuscular Hemoglobin Concent 34 32-36 G/DL Red Cell Distribution Width 13.9 10.0-14.5 % Platelet Count 179 130-400 10^3/uL Mean Platelet Volume 11.8 H 7.4-10.4 FL Neutrophils (%) (Auto) 81 H 42-75 % Lymphocytes (%) (Auto) 9 L 12-44 % Monocytes (%) (Auto) 10 0-12 % Eosinophils (%) (Auto) 1 0-10 % Basophils (%) (Auto) 0 0-10 % Neutrophils # (Auto) 10.5 H 1.8-7.8 X 10^3 Lymphocytes # (Auto) 1.2 1.0-4.0 X 10^3 Monocytes # (Auto) 1.2 H 0.0-1.0 X 10^3 Eosinophils # (Auto) 0.1 0.0-0.3 10^3/uL Basophils # (Auto) 0.0 0.0-0.1 10^3/uL Prothrombin Time 13.4 12.2-14.7 SEC INR Comment 1.0 0.8-1.4 Activated Partial Thromboplast Time 26 24-35 SEC Sodium Level 142 135-145 MMOL/L Potassium Level 5.1 H 3.6-5.0 MMOL/L Chloride Level 106 98-107 MMOL/L Carbon Dioxide Level 22 21-32 MMOL/L Anion Gap 14 5-14 MMOL/L Blood Urea Nitrogen 23 H 7-18 MG/DL Creatinine 1.78 H 0.60-1.30 MG/DL Estimat Glomerular Filtration Rate 36 BUN/Creatinine Ratio 13 Glucose Level 146 H 70-105 MG/DL Lactic Acid Level 3.46 *H 0.50-2.00 MMOL/L Calcium Level 9.1 8.5-10.1 MG/DL Magnesium Level 1.7 L 1.8-2.4 MG/DL Total Bilirubin 0.5 0.1-1.0 MG/DL Aspartate Amino Transf (AST/SGOT) 18 5-34 U/L Alanine Aminotransferase (ALT/SGPT) 17 0-55 U/L Alkaline Phosphatase 69 40-136 U/L Total Protein 6.7 6.4-8.2 GM/DL Albumin 3.3 3.2-4.5 GM/DL Valproic Acid (Depakene) Level 26.1 L 50.0-100.0 UG/ML Micro Results Microbiology 07/18/17 Influenza Types A,B Antigen (CRISTÓBAL) - Final, Complete My Orders Orders - MONICA GARCIA DO Saline Lock/Iv-Start (07/18/17 18:) Ekg Tracing (07/18/17 18:) O2 (07/18/17 18:) Monitor-Rhythm Ecg Trace Only (07/18/17 18:) Cbc With Automated Diff (07/18/17 18:) Comprehensive Metabolic Panel (07/18/17 18:) Lactic Acid Analyzer (07/18/17 18:) Magnesium (07/18/17 18:) Protime With Inr (07/18/17 18:) Partial Thromboplastin Time (07/18/17 18:) Ua Culture If Indicated (07/18/17 18:) Blood Culture (07/18/17 18:) Influenza A And B Antigens (07/18/17 18:) Chest 1 View, Ap/Pa Only (07/18/17 18:) Albuterol/Ipra Inhalation Soln (Duoneb I (07/18/17 18:15) Rt Request For Service (07/18/17 18:) Saline Lock/Iv-Start (07/18/17 18:01) Lactated Ringers (Lr 1000 Ml Iv Solution (07/18/17 18:01) Svn Sm Volume Nebulizer Rt-Rfs (07/18/17 18:01) Valproic Acid (07/18/17 18:23) Sputum Culture (07/18/17 18:42) Medications Given in ED Current Medications Medications Dose Ordered Sig/Radha Route Start Time Stop Time Status Last Admin Dose Admin Albuterol/ Ipratropium 3 ml ONCE ONCE INH 07/18/17 18:15 07/18/17 18:16 DC 07/18/17 18:12 3 ML Lactated Ringer's 1,000 ml @ 0 mls/hr Q0M ONCE IV 07/18/17 18:01 07/18/17 18:03 DC 07/18/17 18:15 0 MLS/HR Vital Signs/I&O Vital Sign - Last 12Hours 07/18/17 07/18/17 07/18/17 17:46 17:46 18:13 Temp 100.9 Pulse 60 Resp 30 B/P (MAP) 118/69 Pulse Ox 93 96 96 O2 Delivery Nasal Cannula Nasal Cannula Nasal Cannula O2 Flow Rate 2.00 4.00 4.00 Capillary Refill : Progress Note : Progress Note O2 SAT 92-93% ON 2L/NC--UP TO 100% WITH O2 AT 4L/NC AND RT TREATMENTS RT SUCTIONED A LARGE AMOUNT OF PURULENT SPUTUM, AND PT WITH MARKED IMPROVEMENT OF COUGH AND LUNG SOUNDS NO DETERIORATION IN PT'S CONDITION DURING ER STAY BP REMAINED > 100 SYSTOLIC FOR ENTIRE ER STAY ECG Initial ECG Impression Time: 18:27 Initial ECG Rate: 60 Initial ECG Comparisson: Unchanged Comment 100% ATRIAL PACED, RBBB, 1ST DEGREE AV BLOCK Diagnostic Imaging Comments CXR--BIBASILAR ATELECTASIS/INFILTRATES, PER RADIOLOGIST REPORT AT 1845 Reviewed: Reviewed by Me Departure Communication (Admissions) Progress Notes 6--SPOKE WITH DR. PEOPLES, HOSPITALIST HIGH SCHOOL COMPUTER SCIENCE TEACHER. ACCEPTS PT FOR ADMIT. Impression Impression: Primary Impression: Pneumonia Additional Impressions: Severe sepsis Hypoxia Dementia Disposition: 09 ADMITTED INPATIENT Condition: Improved Admissions Decision to Admit Reason: Admit from ER (General) Decision to Admit/Date: Jul 18, 2017 Time/Decision to Admit Time: 18:45 Departure-Patient Inst. Referrals: ANGIE YOUSSEF DO (PCP/Family) Primary Care Physician MONICA GARCIA DO Jul 18, 2017 18:29
[2017-07-18 18:33] LABS: PROTHROMBIN TIME PATIENT 13.4 SEC (12.2-14.7)
--- NOTE | 2017-07-18 18:39 | Diagnostic Imaging Report ---
EXAM: CHEST 1 VIEW, AP/PA ONLY. INDICATION: Shortness of breath. Cough. COMPARISON: Chest radiograph 08/21/2011. FINDINGS: Low lung volumes accentuate the likely normal heart size and pulmonary vascularity. Bibasilar atelectasis or infiltrate. Cardiac pacer. Sternotomy. No definite pleural effusion or pneumothorax. No acute osseous findings. IMPRESSION: Low lung volumes with bibasilar atelectasis or infiltrate. Dictated by: Dictated on workstation # [id number]
[2017-07-18 18:41] LABS: ALBUMIN 3.3 GM/DL (3.2-4.5); BILIRUBIN,TOTAL 0.5 MG/DL (0.1-1.0); CALCIUM 9.1 MG/DL (8.5-10.1); CREATININE SERUM 1.78 MG/DL (0.60-1.30); MAGNESIUM 1.7 MG/DL (1.8-2.4); POTASSIUM 5.1 MMOL/L (3.6-5.0); TOTAL PROTEIN 6.7 GM/DL (6.4-8.2)
[2017-07-18] MEDS ORDERED: APAP 325 MG/10.15 ML LIQ (TYLENOL) UDC PO ONE (19:00)
[2017-07-18] MEDS ORDERED: cefTRIAXone INJECTION 1,000 MG in NS (IVPB) 50 ML IV ONE (19:15)
[2017-07-18] MEDS ORDERED: AZITHROMYCIN 500 MG/NS 250 ML IVPB IV NR ×2 (19:54)
[2017-07-18] MEDS ORDERED: NS IV 1000 ML 2,313.33 ML IV PRN (20:00)
[2017-07-18] MEDS ORDERED: APAP 325 MG/10.15 ML LIQ (TYLENOL) UDC PO PRN (20:00)
[2017-07-18] MEDS ORDERED: CATHETER FLUSH 10 ML SYR IV PRN (20:00)
[2017-07-18] MEDS: NS IV 1000 ML 1,000 ML IV SCH ×2 (20:18→23:00)
--- OUTSIDE RECORDS SUMMARY | 2017-07-18 20:28 | XMS REPORT | Clinical Summary ---
Author Author [facility] Organization [facility] Address Unknown Phone Unavailable Care Team Providers Care Certified Lactation Counselor Name Role Phone PCP Unavailable Source Comments Some departments are not documenting in the electronic medical record. If you do not see the information that you expected, contact Release of Information in the Health Information Management department at [phone] for further assistance in locating additional records.[facility] Allergies Active Allergy Reactions Severity Noted Date [...] Taken Blood Pressure 136/80 08/30/2011 11:47 AM STENO TYPIST Pulse 60 08/30/2011 11:47 AM STENO TYPIST Temperature 37.1 C (98.8 F) 08/30/2011 11:47 AM STENO TYPIST Respiratory Rate - - Oxygen Saturation 94% 08/30/2011 11:47 AM STENO TYPIST Inhaled Oxygen - - Concentration Weight 75.3 kg (166 lb 0.1 oz) 08/30/2011 4:00 AM STENO TYPIST Height 175.3 cm (5' 9") 08/22/2011 5:13 PM STENO TYPIST Body Mass Index 24.51 08/30/2011 4:00 AM STENO TYPIST Plan of Treatment Health Maintenance Due Date Last Done Comments PHYSICAL (COMPREHENSIVE) 1938 EXAM PERTUSSIS VACCINE 1942 TETANUS VACCINE 1948 SHINGLES VACCINE 1991 PREVNAR/PNEUMOVAX (#1) 1996 INFLUENZA VACCINE 04/01/2017 Results Not on filefrom Last 3 Months
[2017-07-18] MEDS ORDERED: RT-ALBUTEROL/IPRATROPIUM 3 ML (DUONEB) VIAL INH PRN (21:00)
[2017-07-18] MEDS: RT-ALBUTEROL/IPRATROPIUM 3 ML (DUONEB) VIAL INH SCH (21:34)
[2017-07-18 21:35] LABS: BILIRUBIN,URINE NEGATIVE (NEGATIVE); KETONES,URINE 1+ (NEGATIVE); LEUKOCYTE ESTERASE ,URINE 1+ (NEGATIVE); NITRITE,URINE NEGATIVE (NEGATIVE); PH,URINE 5 (5-9); PROTEIN,URINE 1+ (NEGATIVE); UROBILINOGEN,URINE 1 MG/DL (NORMAL)
[2017-07-19] VITALS: BP 121/73
[2017-07-19] MEDS ORDERED: LORA10CA PO (01:08)
[2017-07-19] MEDS ORDERED: DIVA125T2 PO (01:10)
[2017-07-19] MEDS ORDERED: RISP0.2517 PO (01:29)
[2017-07-19] MEDS ORDERED: FURO-124 PO (01:29)
[2017-07-19] MEDS ORDERED: HALO5AMP PO (01:29)
[2017-07-19] MEDS ORDERED: MEMA5TAB PO (01:29)
[2017-07-19] MEDS ORDERED: MELA3TAB52 PO (01:29)
[2017-07-19] MEDS ORDERED: POLY17PO6 PO (01:29)
[2017-07-19] MEDS ORDERED: RIVA1PAT12 TD (01:29)
[2017-07-19] MEDS ORDERED: POTA99TA21 PO (01:29)
[2017-07-19] MEDS: RT-ALBUTEROL/IPRATROPIUM 3 ML (DUONEB) VIAL INH SCH ×7 (02:16→22:13)
[2017-07-19 04:00] VITALS: BP 129/58
[2017-07-19] MEDS: NS IV 1000 ML 1,000 ML IV SCH ×2 (06:02→13:11)
[2017-07-19 06:08] LABS: BASOPHILS % (AUTO) 0 % (0-10); EOSINOPHILS # (AUTO) 0.1 10^3/uL (0.0-0.3); EOSINOPHILS % (AUTO) 1 % (0-10); LYMPHOCYTES # (AUTO) 2.9 X 10^3 (1.0-4.0); LYMPHOCYTES % (AUTO) 20 % (12-44); MEAN CORPUSCULAR HEMOGLOBIN 32 PG (25-34); MEAN CORPUSCULAR HGB CONC 33 G/DL (32-36); MEAN CORPUSCULAR VOLUME 95 FL (80-99); MEAN PLATELET VOLUME 11.3 FL (7.4-10.4); MONOCYTES # (AUTO) 1.2 X 10^3 (0.0-1.0); MONOCYTES % (AUTO) 8 % (0-12); NEUTROPHILS # (AUTO) 10.4 X 10^3 (1.8-7.8); NEUTROPHILS % (AUTO) 71 % (42-75); PLATELET COUNT 142 10^3/uL (130-400); RED BLOOD COUNT 4.13 10^6/uL (4.35-5.85); RED CELL DISTRIBUTION WIDTH 13.9 % (10.0-14.5); WHITE BLOOD COUNT 14.7 10^3/uL (4.3-11.0)
[2017-07-19 06:28] LABS: ALBUMIN 3.1 GM/DL (3.2-4.5); BILIRUBIN,TOTAL 0.7 MG/DL (0.1-1.0); CALCIUM 8.7 MG/DL (8.5-10.1); CREATININE SERUM 1.38 MG/DL (0.60-1.30); POTASSIUM 4.5 MMOL/L (3.6-5.0); TOTAL PROTEIN 6.5 GM/DL (6.4-8.2)
[2017-07-19 06:47] LABS: BAND NEUTROPHILS 12 %; EOSINOPHILS % (MANUAL) 1 %; LYMPHOCYTES % (MANUAL) 16 %; NEUTROPHILS % (MANUAL) 65 %
[2017-07-19 08:00] VITALS: BP 130/61
[2017-07-19] MEDS ORDERED: AZITHROMYCIN 250 MG TAB (ZITHROMAX) PO SCH (09:00)
[2017-07-19] MEDS: cefTRIAXone 1 GM/NS 50 ML IVPB IV SCH ×2 (09:19)
[2017-07-19] MEDS ORDERED: DEXT1DRO7 OU (11:38)
[2017-07-19] MEDS ORDERED: ACET-2267 PO (11:38)
[2017-07-19 12:00] VITALS: BP 110/64
--- NOTE | 2017-07-19 13:22 | History & Physical-Hospitalist ---
HPI History of Present Illness: HPI/Chief Complaint The patient is an 87-year-old white male known to me from previous contacts. He has been in poor health for more than 10 years. He has recently been living at [facility]. He was sent down by ambulance to the emergency room yesterday. The reasons for the transfer were sketchy at best. He was reported to have had 100.4 temperature up flare. He also was stated to have been hypoxic but this resolved with low-flow oxygen by nasal cannula. In the emergency room the initial respiratory rate at arrival was 30 but all since then have been 20 or less. The initial temperature was recorded at 100.9. The white blood count was 12,900 this would have qualified him for Sirs a lactic acid was 3.46 which would have been in the category of hyperlipemia and not acidosis. He has remained stable to improved since arrival. He does not speak and his gave a rather optimistic account of his abilities. She stated that they had walked yesterday and he had coughed up a considerable amount of mucous as has been his custom for 10 years or more. She then went on home. She was later called and admits she was not enthusiastic about his coming to the emergency room. She had hoped that he would be ready for discharge to home from the facility on 07/25. He takes a large number of psychotropic drugs after a stay at the [facility] for aggressive behavior. Source: family Exam Limitations: no limitations Date Seen 07/19/17 Time Seen by Provider: 13:17 Attending Physician Fatmata Martell MD PCP Baljeet Contreras DO Referring Physician Date of Admission Jul 18, 2017 at 18:45 Home Medications & Allergies Home Medications Reviewed patient Home Medication Reconciliation Form Allergies Allergies Coded Allergies Iodinated Contrast- Oral and IV Dye (Unverified Allergy, Unknown, 02/16/07) tetracycline (Unverified Allergy, Unknown, 02/16/07) Past Lszozfz-Lzcumx-Rexurz Hx Patient Social History Alcohol Use: Denies Use Recreational Drug Use: No Smoking Status: Never a Smoker 2nd Hand Smoke Exposure: No Physical Abuse Screen: No Sexual Abuse: No Recent Foreign Travel: No Contact w/other who traveled: No Recent Hopitalizations: No Recent Infectious Disease Expo: No Immunizations Up To Date Tetanus Booster (TDap): Unknown Date of Pneumonia Vaccine: Jul 13, 2004 Date of Influenza Vaccine: Jun 12, 2017 Seasonal Allergies Seasonal Allergies: No Surgeries Yes (CARDIAC STENT; LEFT HIP REPLACEMENT) Appendectomy, CABG, Coronary Stent, Joint Replacement, Orthopedic, Pacemaker Respiratory Yes (ASPIRATION) Currently Using CPAP: No Cardiovascular Yes (SSS; RBBB; FIRST DEGREE AV BLOCK) Cardiomyopathy, Coronary Artery Disease, Hypertension, Peripheral Vascular Neurological Yes Dementia Reproductive System Hx Reproductive Disorders: No Genitourinary No Gastrointestinal Yes Gastroesophageal Reflux Musculoskeletal Yes Degenerate Disk Disease Endocrine History of Endocrine Disorders: No HEENT History of HEENT Disorders: No Cancer No Psychosocial History of Psychiatric Problem: Yes (DEMENTIA WITH BEHAVIOR DISORDER) Integumentary History of Skin or Integumenta: No Blood Transfusions History of Blood Disorders: No Family Medical History Significant Family History: No Pertinent Family Hx Review of Systems Constitutional: see HPI EENTM: no symptoms reported Respiratory: see HPI, cough, phlegm Cardiovascular: other Gastrointestinal: dysphagia, other (requires a specialized diet) Psychiatric/Neurological: Other (advanced dementia) Physical Exam Physical Exam Vital Signs Vital Sign - Last 12Hours 07/18/17 20:46 FiO2 28 Capillary Refill : Less Than 3 Seconds General Appearance: Other (he does not speak but does look at me when I speak. He appears comfortable and pink.) Eyes: Bilateral Eye Normal Inspection HEENT: Normal ENT Inspection Neck: Normal Inspection Respiratory: Other (rattling cough and rhonchi. Distant breath sounds) Cardiovascular: Other (rate is regular and 60 which suggests for pacing) Gastrointestinal: Normal Bowel Sounds, No Organomegaly, No Pulsatile Mass, Non Tender, Soft Extremity: Normal Capillary Refill, Normal Inspection, Normal Range of Motion, Non Tender, No Calf Tenderness, No Pedal Edema Neurologic/Psychiatric: Other (quite demented and does not speak) Skin: Normal Color, Warm/Dry Results Results/Procedures Lab Laboratory Tests 07/18/17 18:00 07/19/17 05:41 Assessment/Plan Admission Diagnosis SIRS. 2.severe dementia. 3.status DNR/DNI. 4.chronic bronchitis/COPD 5.previous history coronary artery disease with intervention Assessment and Plan IV Rocephin. Observe status and hope for early discharge. Clinical Quality Measures DVT/VTE Risk/Contraindication: Risk Factor Score Per Nursin RFS Level Per Nursing on Admit: 4+=Very High PATRIZIA MENDIOLA MD Jul 19, 2017 13:22
[2017-07-19 16:00] VITALS: BP 103/67
[2017-07-19 20:23] VITALS: BP 145/70
[2017-07-20] VITALS: BP 147/67
[2017-07-20] MEDS: NS IV 1000 ML 1,000 ML IV SCH (00:02)
[2017-07-20] MEDS: RT-ALBUTEROL/IPRATROPIUM 3 ML (DUONEB) VIAL INH SCH ×6 (02:37→22:30)
[2017-07-20 04:00] VITALS: BP 149/68
[2017-07-20 08:00] VITALS: BP 130/73
[2017-07-20] MEDS: FUROSEMIDE 40 MG (LASIX) TAB PO SCH (08:34)
[2017-07-20] MEDS: MEMANTINE 5 MG (NAMENDA) TABLET PO SCH (08:34)
[2017-07-20] MEDS: cefTRIAXone 1 GM/NS 50 ML IVPB IV SCH ×2 (08:34)
[2017-07-20 12:00] VITALS: BP 121/57
--- NOTE | 2017-07-20 12:02 | Progress Note-Hospitalist ---
Standard Progress Note Progress Notes/Assess & Plan Date Seen 07/20/17 Time Seen by Provider: 11:59 Diagnosis SIRS. 2.severe dementia. 3.status DNR/DNI. 4.chronic bronchitis/COPD 5.previous history coronary artery disease with intervention Assess & Plan/Chief Complaint The patient appears more alert this morning. He is sitting in a chair at the bedside. He apparently got up last night from the chair and started to the bathroom. He then had an incontinent bowel movement all over the floor. He still has a Cruz which will be discontinued. Physical exam: He appears alert. He is rather wide-eyed. Lungs show distant breath sounds and scattered rhonchi. CV is regular. Ankles show no pedal edema. He is afebrile since admission. Vital signs remained good. Impression: SIRS. 2.severe dementia. 3. Acute on chronic bronchitis. 4.COPD. 5.history of coronary artery disease with previous intervention. Plan: Adjust medications. Begin discharge planning in the a.m. Labs Laboratory Tests 07/18/17 18:00 07/19/17 05:41 PATRIZIA MENDIOLA MD Jul 20, 2017 12:02
[2017-07-20] MEDS ORDERED: METO-395 PO (13:53)
[2017-07-20] MEDS ORDERED: MULT1TAB69 PO (13:53)
[2017-07-20] MEDS ORDERED: AMLO10TA2 PO (13:53)
[2017-07-20] MEDS ORDERED: ALBU2.5V4 IH ×2 (13:53)
[2017-07-20] MEDS ORDERED: FURO40TA4 PO (13:53)
[2017-07-20] MEDS ORDERED: CLOP75TA28 PO (13:53)
[2017-07-20] MEDS ORDERED: MEMA5TAB PO (13:53)
[2017-07-20] MEDS ORDERED: POTA10TA10 PO (13:53)
[2017-07-20] MEDS ORDERED: OMEG-160 PO (13:53)
[2017-07-20] MEDS ORDERED: VITA1TAB17 PO (13:53)
[2017-07-20] MEDS ORDERED: DIVA125C10 PO (13:53)
[2017-07-20] MEDS ORDERED: ACET-93 PO (13:53)
[2017-07-20] MEDS ORDERED: CHOL10007 PO (13:53)
[2017-07-20] MEDS ORDERED: DONE10TA41 PO (13:53)
[2017-07-20] MEDS ORDERED: NITR0.4T39 SL (13:53)
[2017-07-20 16:00] VITALS: BP 153/72
[2017-07-20 20:00] VITALS: BP 148/69
[2017-07-20] MEDS ORDERED: CEFDINIR 300 MG (OMNICEF) CAP PO SCH (21:00)
[2017-07-21 00:30] VITALS: BP 139/74
[2017-07-21] MEDS: RT-ALBUTEROL/IPRATROPIUM 3 ML (DUONEB) VIAL INH SCH ×4 (02:19→15:23)
[2017-07-21 04:40] VITALS: BP 130/70
[2017-07-21 07:52] VITALS: BP 134/68
[2017-07-21] MEDS ORDERED: LINEZOLID (ZYVOX) 600 MG TAB PO SCH (09:00)
[2017-07-21] MEDS: FUROSEMIDE 40 MG (LASIX) TAB PO SCH (09:10)
[2017-07-21] MEDS: MEMANTINE 5 MG (NAMENDA) TABLET PO SCH (09:10)
--- NOTE | 2017-07-21 09:24 | Discharge Summary ---
Diagnosis/Chief Complaint Date of Admission Jul 18, 2017 at 18:45 Date of Discharge Discharge Diagnosis MRSA PNEUMONIA SIRS DEMENTIA Discharge Summary Discharge Physical Examination Allergies: Coded Allergies: Iodinated Contrast- Oral and IV Dye (Unverified Allergy, Unknown, 02/16/07) tetracycline (Unverified Allergy, Unknown, 02/16/07) Vitals & I&Os Vital Signs Date Time Temp Pulse Resp B/P (MAP) Pulse Ox O2 Delivery O2 Flow Rate FiO2 07/21/17 16:00 98.0 68 18 138/70 95 Nasal Cannula 3.00 07/18/17 20:46 28 Discharge Instructions to patient/family Please see electronic discharge instructions given to patient. Discharge Medications Reviewed and agree with Discharge Medication list on patient's Discharge Instruction sheet Clinical Quality Measures DVT/VTE Risk/Contraindication: Risk Factor Score Per Nursin RFS Level Per Nursing on Admit: 4+=Very High NARA RAY MD Jul 21, 2017 09:24
[2017-07-21] MEDS ORDERED: LINE600T5 PO (09:26)
[2017-07-21] MEDS ORDERED: LACT1TAB6 PO (09:26)
--- NOTE | 2017-07-21 09:28 | Discharge Inst-Skilled Nursing ---
Discharge Inst-Skilled NF Patient Instructions Patient Problems: MRSA PNEUMONIA DEMENTIA WEAKNESS COUGH Consult/Follow Up/Orders Follow Up Appt.: 1 WK WITH [facility] Skilled NF Admit to: [facility] Certification (SNF) I certify that SNF services are required to be given on an inpatient basis because of the above named patient's need for fdc care on a continuing basis for the conditions(s) for which he/she was receiving inpatient hospital services prior to his/her transfer to the SNF. Intermediate Facility Order: Nursing Services, Match Up Worker-Evaluate & Treat, Physical Therapy-Evaluate & Treat, Speech Language-Evaluate & Treat Discharge Diet: Other Diet (RESUME PREVIOUS DIET) Daily Activity as Tolerated: Yes New & Resume Previous Orders New & Resume Previous Orders RESUME PREVIOUS ORDERS Nara Martell Jul 21, 2017 09:27 Medication List: Active Scripts Active Acidophilus (Lactobacillus Acidophilus) 1 Each Tab.chew 1 Each PO BID 14 Days Zyvox (Linezolid) 600 Mg Tablet 600 Mg PO BID 10 Days Reported Acetaminophen 500 Mg Tablet 500 Mg PO DAILY Namenda (Memantine HCl) 5 Mg Tablet 5 Mg PO DAILY Furosemide 40 Mg Tablet 40 Mg PO DAILY Albuterol Sulfate 2.5 Mg/3 Ml Vial.neb 2.5 Mg IH UD PRN 1 VIAL INHALED TID PRN SOB X 5 DAYS Albuterol Sulfate 2.5 Mg/3 Ml Vial.neb 2.5 Mg IH Q4H PRN Potassium Chloride 10 Meq Tablet.er 10 Meq PO DAILY Divalproex Sodium 125 Mg Cap.sprink 125 Mg PO TID Vitamin D3 (Cholecalciferol (Vitamin D3)) 1,000 Unit Capsule 1,000 Unit PO DAILY Fish Oil 1,000 mg Softgel ([place]-3/Dha/Epa/Fish Oil) 1 Each Capsule 2,000 Mg PO DAILY TAKES 2 (1,000 MG) CAPSULES Vitamin B Complex 1 Each Tablet 1 Tab PO DAILY Multivitamins (Multivitamin) 1 Each Tablet 1 Tab PO DAILY Amlodipine Besylate 10 Mg Tablet 10 Mg PO HS Metoprolol Succinate 100 Mg Tab.er.24h 100 Mg PO DAILY Donepezil HCl 10 Mg Tablet 10 Mg PO DAILY Clopidogrel (Clopidogrel Bisulfate) 75 Mg Tablet 75 Mg PO DAILY Nitroglycerin 0.4 Mg Tab.subl 0.4 Mg SL UD PRN Tylenol Extra Strength (Acetaminophen) 500 Mg Tablet 500 Mg PO Q6H Artificial Tears (Dextran 70/Hypromellose) 1 Each Droperette 2 Drops OU Q12H PRN Rivastigmine 1 Each Patch.td24 4.6 Mg TD DAILY Risperdal (Risperidone) 0.25 Mg Tablet 0.25 Mg PO BID Miralax (Polyethylene Glycol 3350) 17 Gm Powd.pack 17 Gm PO BID Melatonin 3 Mg Tab.rapdis 3 Mg PO HS Lasix (Furosemide) 40 Mg Tablet 40 Mg PO UD PRN GIVE IF PATIENT GAINS 3 OR MORE POUNDS WITHIN 48 HOURS Haldol (Haloperidol Lactate) 5 Mg/1 Ml Ampul 0.5 Mg PO DAILY Claritin (Loratadine) 10 Mg Capsule 10 Mg PO DAILY My orders: Orders - NARA MARTELL MD Linezolid Tablet (Zyvox Tablet) (07/21/17 09:00) Attending Discharge (07/21/17 09:24) NARA MARTELL MD Jul 21, 2017 09:28
--- NOTE | 2017-07-21 10:50 | Physician Query Clarification ---
PQ-Conflicting Diagnosis Admission/Discharge Admission Date: Jul 18, 2017 at 18:45 Discharge Date: The medical record reflects the following clinical scenario: History/Risk Factors: Fever Hypoxia Clinical Findings: T 100.9, Pulse 60, Resp 30, BP 118/69, WBC 12.9, Lactic Acid 3.46 rising to 4.06. Treatment: IV Rocephin, IV Azithromycin 500mg Question: Do you agree with the impression of the Severe Sepsis per ED physician, Dr. Peters ? Dr. Mendiola felt that only SIRS was present with acute bronchitis. Please document a response below . PHYSICIAN RESPONSE Do you agree w/Consulting Dx?: Other,explanation/clincal findings (I AGREE WITH DR. MENDIOLA - SIRS, NOT SEVERE SEPSIS) In responding to this query, please exercise your independent professional judgment. The purpose of this communication is to more accurately reflect the complexity of your patients condition. The fact that a question is asked does not imply that any particular answer is desired or expected. Thank you for your timely response to this clarification. Requestors name: Rita Castro [facility] Phone # ext [phone] or [phone] THIS PHYSICIAN QUERY FORM IS A PERMANENT PART OF THE MEDICAL RECORD RITA CASTRO Jul 21, 2017 10:50 NARA RAY MD Jul 22, 2017 08:28
--- NOTE | 2017-07-21 11:00 | Physician Query Clarification ---
PQ-Uncertain Diagnosis Admission/Discharge Admission Date: Jul 18, 2017 at 18:45 Discharge Date: The medical record reflects the following clinical scenario: History/Risk Factors: Fever, cough and hypoxia. Clinical Findings:T 100.9, WBC 12.9 Sputum culture- Staphylococcus Aureus-Moderate Growth/MRSA positive Treatment: IV Rocephin, IV Azithromycin Question: Is MRSA pneumonia a clinically valid diagnosis? MRSA pneumonia was documented in the discharge instructions with no further documentation in the medical record. Please document a response below. PHYSICIAN RESPONSE Diagnosis clinically valid: Other, explanation/clinical finding (MRSA PNEUMONIA WAS PRESENT DOCUMENTED BY THE POSITIVE SPUTUM SAMPLE, PT WAS STARTED ON ZYVOX ON DISCHARGE) In responding to this query, please exercise your independent professional judgment. The purpose of this communication is to more accurately reflect the complexity of your patients condition. The fact that a question is asked does not imply that any particular answer is desired or expected. Thank you for your timely response to this clarification. Requestors name: Rita Castro CCS,[facility] Phone # ext [phone] or [phone] THIS PHYSICIAN QUERY FORM IS A PERMANENT PART OF THE MEDICAL RECORD RITA CASTRO Jul 21, 2017 11:00 NARA RAY MD Jul 22, 2017 08:29
[2017-07-21 16:00] VITALS: BP 138/70
== END 2017-07-21 16:20 | DRG 178 ==
LOC: EDUNIT# 17:46 → ER 17:47 → 4TH 18:45
PROVIDERS: ADMIT Internal Medicine; ATTEND Family Medicine
DX: J15.212 Pneumonia due to Methicillin resistant Staphylococcus aureus (principal); J44.0 Chronic obstructive pulmonary disease with (acute) lower respiratory infection; J20.9 Acute bronchitis, unspecified; F03.91 Unspecified dementia, unspecified severity, with behavioral disturbance; I42.9 Cardiomyopathy, unspecified; R09.02 Hypoxemia; I25.10 Atherosclerotic heart disease of native coronary artery without angina pectoris; I10 Essential (primary) hypertension; Z66 Do not resuscitate; I44.0 Atrioventricular block, first degree; I73.9 Peripheral vascular disease, unspecified; K21.9 Gastro-esophageal reflux disease without esophagitis; Z95.0 Presence of cardiac pacemaker; Z95.5 Presence of coronary angioplasty implant and graft; Z95.1 Presence of aortocoronary bypass graft; Z96.642 Presence of left artificial hip joint
CPT/HCPCS: 36415; 71010; 80053; 80164; 81000; 83605; 83735; 85007; 85025; 85027; 85610; 85730; 87040; 87070; 87077; 87088; 87186; 87205; 87804; 93005; 93041; 94640; 94664; 94760; 94799; 96361; 96374